=== PATIENT | male | born 1965 | race Caucasian/White ===

== ENCOUNTER 2022-07-13 09:20 | Outpatient (CLI) | payer BC, SELFPAY | END 2022-07-13 09:21 | disposition home or self-care (01) | PROVIDERS: PCP Emergency Medicine; Visit Provider Emergency Medicine | DX: Z00.00 Encounter for general adult medical examination without abnormal findings (principal); I49.9 Cardiac arrhythmia, unspecified; E78.5 Hyperlipidemia, unspecified; I10 Essential (primary) hypertension; E53.8 Deficiency of other specified B group vitamins | CPT/HCPCS: 80076; 83735; 84443 ==

== ENCOUNTER 2022-08-11 16:48 | Outpatient (CLI) | payer BC, SELFPAY | END 2022-08-11 16:49 | disposition home or self-care (01) | PROVIDERS: PCP Emergency Medicine; Visit Provider Emergency Medicine | DX: E53.8 Deficiency of other specified B group vitamins (principal); D63.8 Anemia in other chronic diseases classified elsewhere; R06.02 Shortness of breath | CPT/HCPCS: 82607; 82728; 83880 ==

== ENCOUNTER 2022-09-14 08:40 | Outpatient (CLI) | payer BC, SELFPAY | END 2022-09-14 08:41 | disposition home or self-care (01) | PROVIDERS: PCP Emergency Medicine; Visit Provider Emergency Medicine | DX: E66.1 Drug-induced obesity (principal); R73.9 Hyperglycemia, unspecified; D50.9 Iron deficiency anemia, unspecified; I10 Essential (primary) hypertension; E78.5 Hyperlipidemia, unspecified; E53.8 Deficiency of other specified B group vitamins; I48.0 Paroxysmal atrial fibrillation; N17.9 Acute kidney failure, unspecified; Z12.5 Encounter for screening for malignant neoplasm of prostate | CPT/HCPCS: 83540; 83550; 83880; 84153 ==

== ENCOUNTER 2022-11-01 15:02 | Outpatient (CLI) | payer BC, SELFPAY | END 2022-11-01 15:03 | disposition home or self-care (01) | LOC: LKVREF 15:04 | PROVIDERS: PCP Emergency Medicine; Visit Provider Emergency Medicine | DX: I42.8 Other cardiomyopathies (principal) | CPT/HCPCS: 83880 ==

== ENCOUNTER 2023-03-30 13:58 | Outpatient (CLI) | payer BC, SELFPAY | END 2023-03-30 13:59 | disposition home or self-care (01) | PROVIDERS: PCP Emergency Medicine; Visit Provider Emergency Medicine | DX: Z00.00 Encounter for general adult medical examination without abnormal findings (principal); E78.5 Hyperlipidemia, unspecified; I10 Essential (primary) hypertension; E53.8 Deficiency of other specified B group vitamins; D63.8 Anemia in other chronic diseases classified elsewhere; R73.9 Hyperglycemia, unspecified; E61.1 Iron deficiency; Z12.5 Encounter for screening for malignant neoplasm of prostate | CPT/HCPCS: 80061; 80076; 82607; 83880; 84153 ==

== ENCOUNTER 2023-11-22 10:03 | Outpatient (CLI) | payer BC, SELFPAY | END 2023-11-22 10:04 | disposition home or self-care (01) | PROVIDERS: PCP Emergency Medicine; Visit Provider Emergency Medicine | DX: E61.1 Iron deficiency (principal); R73.9 Hyperglycemia, unspecified; E53.8 Deficiency of other specified B group vitamins; I10 Essential (primary) hypertension; E78.5 Hyperlipidemia, unspecified | CPT/HCPCS: 80053; 80061; 83880 ==

== ENCOUNTER 2024-02-13 09:50 | Outpatient (CLI) | payer BC, SELFPAY | END 2024-02-13 09:51 | disposition home or self-care (01) | PROVIDERS: PCP Emergency Medicine; Visit Provider Emergency Medicine | DX: I10 Essential (primary) hypertension (principal); I50.20 Unspecified systolic (congestive) heart failure; E78.2 Mixed hyperlipidemia | CPT/HCPCS: 80048; 80061; 83880 ==

== ENCOUNTER 2025-03-13 10:02 | Outpatient (CLI) | payer SELFPAY | END 2025-03-13 10:03 | disposition home or self-care (01) | PROVIDERS: PCP Family Medicine; Referring Provider Family Medicine; Visit Provider Family Medicine | DX: Z00.00 Encounter for general adult medical examination without abnormal findings (principal); Z13.6 Encounter for screening for cardiovascular disorders | CPT/HCPCS: 80053; 80061 ==